=== PATIENT | female | born 1975 | race Caucasian/White ===

== ENCOUNTER → 2017-02-23 | Outpatient (CLI) | payer OTHER ==
--- NOTE | 2017-02-23 13:39 | MM ---
Reason for exam: screening (asymptomatic). Baseline mammogram. History: Family history of breast cancer in grandmother at age 79. Took hormonal contraceptives for 1 year beginning at age 32. Physical Findings: Nurse did not find any significant physical abnormalities on exam. MG Screening Mammo w CAD Bilateral CC and MLO view(s) were taken. The breast tissue is heterogeneously dense. This may lower the sensitivity of mammography. Benign calcifications. There is no discrete abnormality. These results were verbally communicated with the patient and result sheet given to the patient on 02/23/17. ASSESSMENT: Negative, BI-RAD 1 RECOMMENDATION: Routine screening mammogram of both breasts in 1 year.
== END | disposition home or self-care (01) ==
LOC: RADMAMWWP 12:51
PROVIDERS: ATTEND Obstetrics & Gynecology
DX: Z12.31 Encounter for screening mammogram for malignant neoplasm of breast (principal)

== ENCOUNTER → 2017-04-24 | Outpatient (CLI) | payer OTHER ==
[2017-04-24 09:20] LABS: Basophils % (A) 1 %; CHCM 34.2; Eosinophils # (A) 0.2 k/uL (0-0.7); Eosinophils % (A) 2 %; HCT 41.9 % (34.0-46.0); HDW 2.74; HGB 14.1 gm/dL (11.4-16.0); Luc % (Auto) 3; Lymphocytes # (A) 1.3 k/uL (1.0-4.8); Lymphocytes % (A) 21 %; MCH 31.6 pg (25.0-35.0); MCHC 33.6 g/dL (31.0-37.0); MCV 94.1 fL (80.0-100.0); Mean Platelet Volume 8.2; Monocytes # (A) 0.5 k/uL (0-1.0); Monocytes % (A) 8 %; Neutrophils # (A) 4.1 k/uL (1.3-7.7); Neutrophils % (A) 65 %; RBC 4.46 m/uL (3.80-5.40); RDW 13.4 % (11.5-15.5); WBC 6.3 k/uL (3.8-10.6); WBC (Perox) 6.81
== END | disposition home or self-care (01) ==
LOC: LABWHC1 08:50
PROVIDERS: ATTEND Internal Medicine
DX: Z13.228 Encounter for screening for other metabolic disorders (principal); Z13.220 Encounter for screening for lipoid disorders; Z13.29 Encounter for screening for other suspected endocrine disorder
CPT/HCPCS: 36415; 80061; 84439; 84443; 85025

== ENCOUNTER → 2017-12-14 | Outpatient (CLI) | payer OTHER ==
[2017-12-14 09:20] LABS: Basophils % (A) 0 %; Eosinophils # (A) 0.2 k/uL (0-0.7); Eosinophils % (A) 2 %; HCT 39.9 % (34.0-46.0); HGB 13.2 gm/dL (11.4-16.0); Lymphocytes # (A) 1.3 k/uL (1.0-4.8); Lymphocytes % (A) 15 %; MCH 30.7 pg (25.0-35.0); MCHC 33.1 g/dL (31.0-37.0); MCV 92.8 fL (80.0-100.0); Monocytes # (A) 0.6 k/uL (0-1.0); Monocytes % (A) 7 %; Neutrophils % (A) 72 %; Platelet Count 324 k/uL (150-450); RBC 4.29 m/uL (3.80-5.40); WBC 8.3 k/uL (3.8-10.6)
== END | disposition home or self-care (01) ==
LOC: LABPAT 08:46
PROVIDERS: ATTEND Obstetrics & Gynecology
DX: Z01.812 Encounter for preprocedural laboratory examination (principal); N92.0 Excessive and frequent menstruation with regular cycle
CPT/HCPCS: 36415; 85025

== ENCOUNTER 2017-12-25 05:57 | Day surgery (SDC) | payer OTHER ==
[2017-12-21 09:56] VITALS: BMI 23.6
--- NOTE | 2017-12-24 16:32 | HP ---
HISTORY AND PHYSICAL DATE OF SURGERY: 12/25/2017 HISTORY OF PRESENT ILLNESS: The patient is a 42-year-old 1, para 0-1-0-1, admitted with complaints of significant menorrhagia. Her cycles are regular at this time, every 28 to 30 days. Her partner has had a vasectomy. She reports that her bleeding is heavy enough that she bleeds through protection and is very interruptive of her lifestyle. As a result, she has requested definitive intervention with NovaSure. She is aware of other medical or hormonal options for bleeding as well but prefers instead to proceed with NovaSure endometrial ablation. PAST MEDICAL HISTORY: No significant history. PAST SURGICAL HISTORY: None. EARTH BURNER HISTORY: 1, para 0-1-0-1, with one vaginal delivery at 34 weeks, at which time she was induced. Method of contraception is vasectomy. Gynecologic history is unremarkable, with no history of any infections to include STDs. FAMILY HISTORY: Noncontributory. SOCIAL HISTORY: The patient is and works as a dental hygienist. She is an occasional smoker. She reports occasional alcohol and denies any other social concerns. CURRENT MEDICATIONS: Current medications include: 1. Lysine 500 mg daily. 2. Lysteda 650 mg 2 tablets 3 times daily during the heavy days of her menses for up to 5 days. ALLERGIES: NO KNOWN DRUG ALLERGIES. REVIEW OF SYSTEMS: Confined to history of present illness. PHYSICAL EXAMINATION: Vital signs are stable. The patient is afebrile. In general, this is a well-developed, well-nourished white female in no acute distress. Her heart has a regular rhythm and rate without murmur. Her lungs are clear to auscultation bilaterally in all romero. Her abdomen is nondistended, has normoactive bowel sounds. It is soft, non-tender, and without any palpable masses, hepatosplenomegaly or hernias. Her extremities are without any cyanosis, clubbing or edema and are non-tender to palpation bilaterally. Pelvic examination demonstrates normal external genitalia and BUS with normal vaginal mucosa and cervix. There is no cervical motion tenderness. The uterus is approximately 5 weeks in size, mid plane, mobile, non-tender, normal in shape. The adnexa are normal and non-tender without mass bilaterally. Rectovaginal examination is deferred. ASSESSMENT AND PLAN: Menorrhagia. We discussed multiple different options for intervention. She has tried Lysteda, which has been inadequate. As a result, she has requested definitive treatment with NovaSure endometrial ablation. Endometrial biopsy was performed in the office and demonstrated benign findings. The risks and complications of the procedure have been thoroughly discussed, including the risks for bleeding, bleeding requiring transfusion, infection, and injury to local structures to specifically include the risk for uterine perforation as well as subsequent Asherman syndrome and lastly, possible hematometra. She has understood all these risks and agreed to proceed. We are scheduled for the procedure of diagnostic hysteroscopy with NovaSure endometrial ablation on the morning of December 25, 2017. MMODL / IJN: [id number] /
[~2017-12-25 05:57] MED LIST: HYDROmorphone 0.5 MG/0.5 ML SYRINGE IVP PRN; LACTATED RINGERS 1,000 ML IV SCH; LIDOCAINE 1% 20 ML VIAL (10MG/ML) FOR IV START INTRADERMA PRN; MIDAZOLAM 2 MG/2 ML VIAL IV PRN; MORPHINE SULFATE 2 MG/ML SYRINGE IV PRN; ONDANSETRON ODT 4 MG TAB PO ONE; Pre Op ABX Message 1 EACH MISC MISCELLANE ONE
[2017-12-25 06:26] VITALS: TEMP 98.4
[2017-12-25] MEDS ORDERED: LIDOCAINE 1% 20 ML VIAL (10MG/ML) FOR IV START INTRADERMA ONE (06:42)
[2017-12-25] MEDS ORDERED: ONDANSETRON 4 MG/2 ML VIAL IVP ONE ×2 (06:50→06:55)
[2017-12-25] MEDS: SCOPOLAMINE 1.5MG/72HR PATCH TRANSDERM ONE ×2 (06:50→06:53)
[2017-12-25] MEDS: DEXAMETHASONE SOD PHOSPHATE 10 MG/ML 1 ML VIAL IV ONE ×2 (06:50→06:54)
[2017-12-25] MEDS ORDERED: KETOROLAC 30 MG/ML 1 ML VIAL ONE (07:38)
[2017-12-25] MEDS ORDERED: LIDOCAINE 1% INJ 10MG/ML (20 ML MDV) ONE (07:38)
[2017-12-25] MEDS ORDERED: PROPOFOL 10 MG/ML 20 ML VIAL IV ONE (07:38)
[2017-12-25] MEDS ORDERED: MIDAZOLAM 2 MG/2 ML VIAL ONE (07:38)
[2017-12-25] MEDS ORDERED: fentaNYL (PF) 50 MCG/ML 2 ML AMP ONE (07:38)
[2017-12-25] MEDS ORDERED: SIMETHICONE 80 MG CHEWABLE PO PRN (07:40)
[2017-12-25] MEDS ORDERED: diphenhydrAMINE 50 MG/ML 1 ML VIAL IVP PRN (07:40)
[2017-12-25] MEDS ORDERED: IBUPROFEN 600 MG TAB PO PRN (07:40)
[2017-12-25] MEDS ORDERED: ONDANSETRON 4 MG/2 ML VIAL IVP PRN (07:40)
[2017-12-25] MEDS ORDERED: KETOROLAC 30 MG/ML 1 ML VIAL IVP PRN (07:40)
[2017-12-25] MEDS ORDERED: METOCLOPRAMIDE 5 MG/ML 2 ML VIAL IVP PRN (07:40)
[2017-12-25] MEDS ORDERED: Acetaminophen-Codeine 300-30mg TAB PO PRN ×2 (07:40)
[2017-12-25] MEDS ORDERED: LACTATED RINGERS 1,000 ML IV SCH (07:45)
--- NOTE | 2017-12-25 08:14 | P.OP ---
Date of Procedure: 12/25/17 Preoperative Diagnosis: #1. Menorrhagia Postoperative Diagnosis: Same Procedure(s) Performed: #1. Diagnostic hysteroscopy #2. NovaSure endometrial ablation Anesthesia: other (Gen. by facemask) Surgeon: Abram Covington Estimated Blood Loss (ml): 5 IV fluids (ml): 400 Urine output (ml): 75 Pathology: none sent Condition: stable Disposition: PACU Operative Findings: Preoperative pelvic examination demonstrated a 5 week slightly retroverted mobile normal shaped uterus with normal adnexa bilaterally. Intraoperatively, the uterus sounded to 9 cm while the cervix was approximate 4 cm in length. Using the hysteroscope, the bilateral tubal ostia were seen and there was a small amount of shaggy tissue throughout the in vitro cavity but no pathology noted. The settings for the NovaSure tool where a length of 5.0 cm, a width of 4.3 cm, and a total power of 118 W. Following the run time of 105 seconds, the base unit read "procedure complete." The postprocedural result appeared to be excellent. The patient is a potential candidate for vaginal hysterectomy should become necessary in the future. Description of Procedure: The patient was prepped and draped in usual fashion after general anesthesia was administered by the anesthesiologist. A weighted speculum was placed and the anterior lip of the cervix was grasped with a single-tooth tenaculum. The uterus was sounded to 9 cm with a cervical measurement a 4 cm as noted above. Serial dilation was carried out to admit the diagnostic hysteroscope which was placed to the fundus. Using normal saline to distend the uterus, the bilateral tubal ostia were seen and no pathology noted. There was some mild shagginess to the endometrial tissue. Once adequate hysteroscopy in the carried out, the scope was set aside and the cervix further dilated to admit the NovaSure tool. It was placed to the fundus and opened and seated well. The settings are as noted above with a length of 5.0 cm, a width of 4.3 cm, and a total power 118 W. The cervix was sealed with the flange and the cavity checked performed and passed without difficulty. The tool was enabled and the run was started. After a run time of 105 seconds, the base unit read "procedure complete." The tool was closed, removed, and discarded. The diagnostic hysteroscope was replaced within the in vitro cavity and the result appeared to be excellent. All instrumentation was then removed from the patient and there was no ongoing bleeding from either the cervix or from the tenaculum sites. Estimated blood loss for the case was less than 5 mL. There were no complications. All sponge , instrument, and needle counts were correct. The patient tolerated the procedure well and proceeded to the recovery room in stable condition.
[2017-12-25 08:46] VITALS: RESP 18
[2017-12-25] MEDS ORDERED: LACTATED RINGERS 1,000 ML IV ONE (09:09)
[2017-12-25 09:13] VITALS: BP 129/87; PULSE 82
== END 2017-12-25 09:49 | disposition home or self-care (01) ==
LOC: OR 05:57
PROVIDERS: ATTEND Obstetrics & Gynecology
DX: N92.0 Excessive and frequent menstruation with regular cycle (principal); Z79.899 Other long term (current) drug therapy
CPT/HCPCS: 81025; 58563; J2250; J1100; J2405; J2001; J3010; J1885; J2704

== ENCOUNTER → 2021-04-28 | Outpatient (CLI) | payer OTHER ==
--- NOTE | 2021-04-28 09:43 | MM ---
Reason for exam: additional evaluation requested from abnormal screening. Last mammogram was performed less than 1 month ago. History: Family history of breast cancer in grandmother at age 79. Took hormonal contraceptives for 1 year beginning at age 32. Physical Findings: Nurse Summary: 1cm nodule in the left breast at 2 o'clock (nurse db). MG Work Up Mamm w CAD LT Spot compression XCCL, spot compression MLO, and LM view(s) were taken of the left breast. Prior study comparison: April 26, 2021, bilateral MG screening mammo w CAD. The breast tissue is heterogeneously dense. This may lower the sensitivity of mammography. There is no discrete abnormality including area of concern. These results were verbally communicated with the patient and result sheet given to the patient on 04/28/21. ASSESSMENT: Incomplete: need additional imaging evaluation, BI-RAD 0 RECOMMENDATION: Ultrasound of the left breast.
--- NOTE | 2021-04-28 12:43 | USB ---
Reason for exam: additional evaluation requested from abnormal screening. History: Family history of breast cancer in grandmother at age 79. Took hormonal contraceptives for 1 year beginning at age 32. US Breast Workup Limited LT Left limited breast ultrasound including focal area of concern, retroareolar and axilla demonstrates a 0.7 x 0.3 x 0.6cm cystic lesion at 12 o'clock and a 1.0 x 0.4 x 0.7cm cystic cluster at 3 o'clock. These results were verbally communicated with the patient and result sheet given to the patient on 04/28/21. ASSESSMENT: Probably benign, BI-RAD 3 RECOMMENDATION: Ultrasound of the left breast in 6 months. Manage on a clinical basis with regard to palpable.
== END | disposition home or self-care (01) ==
LOC: RADMAMWWP 07:35
PROVIDERS: ATTEND Obstetrics & Gynecology
DX: R92.8 Other abnormal and inconclusive findings on diagnostic imaging of breast (principal); N63.0 Unspecified lump in unspecified breast; Z80.3 Family history of malignant neoplasm of breast
CPT/HCPCS: 77065

== ENCOUNTER → 2023-10-01 | Outpatient (CLI) | payer OTHER ==
[2023-10-01 14:36] LABS: Basophils # (A) 0.1 k/uL (0-0.2); Basophils % (A) 1 %; Eosinophils # (A) 0.1 k/uL (0-0.7); Eosinophils % (A) 1 %; HGB 13.8 gm/dL (11.4-16.0); Lymphocytes # (A) 1.4 k/uL (1.0-4.8); Lymphocytes % (A) 17 %; MCH 32.2 pg (25.0-35.0); MCHC 33.6 g/dL (31.0-37.0); Mean Platelet Volume 8.8; Monocytes # (A) 0.5 k/uL (0-1.0); Monocytes % (A) 5 %; Neutrophils # (A) 6.4 k/uL (1.3-7.7); Neutrophils % (A) 73 %; Platelet Count 293 k/uL (150-450); RBC 4.27 m/uL (3.80-5.40); RDW 13.6 % (11.5-15.5); WBC 8.7 k/uL (3.8-10.6)
[2023-10-01 14:47] LABS: HCG,Qualitative Serum Not Detected
[2023-10-01 14:54] LABS: ALT 92 U/L (4-34); AST 35 U/L (14-36); African American GFR (CKD) >90 (>60 ml/min/1.73 sqM); Albumin 4.8 g/dL (3.5-5.0); Albumin/Globulin Ratio 1.4; Alkaline Phosphatase 113 U/L (38-126); Anion Gap 11 mmol/L; Blood Urea Nitrogen 16 mg/dL (7-17); Calcium 10.1 mg/dL (8.4-10.2); Carbon Dioxide 22 mmol/L (22-30); Chloride 108 mmol/L (98-107); Globulin 3.5 g/dL; Glucose 90 mg/dL (74-99); Non-African American GFR(CKD) >90 (>60 ml/min/1.73 sqM); Sodium 141 mmol/L (137-145); Total Bilirubin 0.5 mg/dL (0.2-1.3); Total Protein 8.3 g/dL (6.3-8.2)
== END | disposition home or self-care (01) ==
LOC: LABWHC1 13:54
PROVIDERS: ATTEND Internal Medicine Hematology & Oncology
DX: C50.919 Malignant neoplasm of unspecified site of unspecified female breast (principal)
CPT/HCPCS: 36415; 80053; 84703; 85025

== ENCOUNTER → 2023-10-22 | Outpatient (CLI) | payer OTHER ==
[2023-10-22 14:01] LABS: Basophils # (A) 0.1 k/uL (0-0.2); Basophils % (A) 1 %; Eosinophils % (A) 0 %; HCT 37.9 % (34.0-46.0); HGB 12.7 gm/dL (11.4-16.0); Lymphocytes # (A) 1.4 k/uL (1.0-4.8); Lymphocytes % (A) 15 %; MCH 32.6 pg (25.0-35.0); MCHC 33.4 g/dL (31.0-37.0); MCV 97.5 fL (80.0-100.0); Mean Platelet Volume 9.3; Monocytes # (A) 0.5 k/uL (0-1.0); Monocytes % (A) 6 %; Neutrophils # (A) 6.6 k/uL (1.3-7.7); Neutrophils % (A) 75 %; Platelet Count 230 k/uL (150-450); RBC 3.89 m/uL (3.80-5.40); RDW 14.6 % (11.5-15.5); WBC 8.8 k/uL (3.8-10.6)
[2023-10-22 14:15] LABS: ALT 106 U/L (4-34); AST 60 U/L (14-36); African American GFR (CKD) >90 (>60 ml/min/1.73 sqM); Albumin 4.6 g/dL (3.5-5.0); Albumin/Globulin Ratio 1.5; Alkaline Phosphatase 99 U/L (38-126); Anion Gap 10 mmol/L; Blood Urea Nitrogen 21 mg/dL (7-17); Calcium 9.6 mg/dL (8.4-10.2); Carbon Dioxide 23 mmol/L (22-30); Chloride 105 mmol/L (98-107); Glucose 100 mg/dL (74-99); HCG,Qualitative Serum Not Detected; Non-African American GFR(CKD) >90 (>60 ml/min/1.73 sqM); Potassium 3.8 mmol/L (3.5-5.1); Sodium 138 mmol/L (137-145); Total Bilirubin 0.4 mg/dL (0.2-1.3); Total Protein 7.6 g/dL (6.3-8.2)
== END | disposition home or self-care (01) ==
LOC: LABWHC1 13:25
PROVIDERS: ATTEND Nurse Practitioner
DX: C50.919 Malignant neoplasm of unspecified site of unspecified female breast (principal)
CPT/HCPCS: 36415; 80053; 84703; 85025